=== PATIENT | male | born 1960 | race Caucasian/White ===

== ENCOUNTER → 2018-06-14 | Outpatient (CLI) | payer BC ==
[~2018-06-14] VITALS: Ht 188 cm; Wt 124.7 kg
[2018-06-14] VITALS (7 sets, daily range): BP systolic 138–162; BP diastolic 72–94
[~2018-06-14] MED LIST: AMARYL4 MG PO; AMBIEN 5 MG TABL5 M1 PO; ASPIRIN325 PO; ASPIRIN81 M2 PO; CARVEDILOL12.5 MG PO; LASIX 20 MG TAB20 MG PO; LIPITOR80 MG PO; LISINOPRIL5 MG PO; METFORMIN HCL500 MG PO; NITROGLYCERIN0.4 MG SUBLING; NORCO 5-325 TA1 EACH; PERCOCET PO; PLAVIX 75 MG TA75 M1 PO
[2018-06-14 08:17] LABS: HEMATOCRIT 47.7 % (42.0-52.0); HEMOGLOBIN 16.3 gm/dL (14.0-18.0); MCH 27.8 pg (26.0-34.0); MCHC 34.1 g/dL (28.0-37.0); MCV 81.6 fL (80.0-100.0); MPV 7.3 fl. (7.2-11.1); RBC 5.84 mil/uL (4.50-6.00); RDW-CV 14.7 % (10.5-14.5); WBC 10.1 thou/uL (4.0-11.0)
[2018-06-14 08:30] LABS: APTT 27.7 Seconds (25.0-31.3); INR 1.1
[2018-06-14 08:35] LABS: ALBUMIN 4.2 g/dL (3.4-5.0); ALKALINE PHOSPHATASE 68 U/L (46-116); ANION GAP 9 mmol/L (7-16); BUN 20 mg/dL (7-18); CALCIUM 8.8 mg/dL (8.5-10.1); CHLORIDE 100 mmol/L (98-107); CHOLESTEROL 103 mg/dL (<200); CO2 27 mmol/L (21-32); CREATININE 1.1 mg/dL (0.6-1.3); GLUCOSE 158 mg/dL (70-99); HDL CHOLESTEROL 27 mg/dL (>40); LDL CHOLESTEROL 34 mg/dL (<100); POTASSIUM 4.2 mmol/L (3.5-5.1); SERUM ASSESSMENT Clear; SGOT 22 U/L (15-37); SGPT 44 U/L (30-65); SODIUM 136 mmol/L (136-145); TC:HDL 3.8 Ratio (Not establshd); TOTAL BILIRUBIN 0.8 mg/dL (<0.1-1.0); TOTAL PROTEIN 7.9 g/dL (6.4-8.2); TRIGLYCERIDE 212 mg/dL (<150); VLDL 42 mg/dL (<40)
--- NOTE | 2018-06-14 10:26 | EKG ---
[place] [address] ELECTROCARDIOGRAM REPORT Name: VIVIAN MENDOZA Room: [facility]#: [id number] Admission: 06/14/18 Attend Phys: Josh Ortega MD Discharge: Date of : 56 Report #: [id number] THIS REPORT FOR: //name// [facility] Test Date: 2018-06-14 Test Time: 08:08:16 Pat Name: VIVIAN MENDOZA Department: Room: Gender: Hat Checker: : 1960 Requested By: Josh Ortega Order Number: [id number] Reading MD: Josh Ortega Measurements Intervals [place] Rate: 63 P: 39 IL: 247 QRS: 138 QRSD: 110 T: 122 QT: 413 QTc: 423 Interpretive Statements Sinus rhythm Atrial premature complexes Prolonged [place] interval Probable right ventricular hypertrophy Nonspecific T abnormalities, lateral leads No previous ECG available for comparison Electronically Signed On 06-14-2018 10:25:46 CDT by Josh Ortega [email or web address] <ELECTRONICALLY SIGNED> By: Josh Ortega MD, [facility] 06/14/18 [id number] [id number] Josh Ortega MD, [facility] /EPI
--- NOTE | 2018-06-27 12:43 | CARD ---
[address] [address] CARDIAC CATH REPORT Name: REJIVIVIAN J Room: [facility]#: [id number] Admission: 06/14/18 Attend Phys: Josh Ortega MD Discharge: Date of : 56 Report #: [id number] THIS REPORT FOR: //name// APPROVED REPORT Study performed: 06/14/2018 12:59:29 Patient Details Patient Status: Out-Patient Room #: The patient is a 58 year-old male Event Personnel Josh Ortega Ssis Ssrs Developer, Marlys Montelongo RN Research Programmer, Lety Boyle RTR Scrub, Kandace Leyva RTR Monitor Procedures Performed Left Heart Cath Coronaries, Bypass Grafts Procedure Narrative A 6fr Ultimum Sheath sheath was inserted into the right femoral artery. Coronary angiography was performed using coronary diagnostic catheters. The right coronary system was accessed and visualized with a Diagnostic 3DRC 6fr catheter. The left coronary system was accessed and visualized with a Diagnostic JL4 catheter. The left ventricle was accessed and visualized with a Diagnostic Angled Pigtail catheter. Left ventricular/Aortic Valve gradient assessed via catheter pullback. Closure device was deployed with a Fr Mynx 6Fr/7Fr. Intraoperative Conscious Sedation Sedation start time: 13:05 Case end Time: 13:49 Fentanyl 25 mcg Versed 2 mg Fluoro Time: 9.0 minutes Dose: DAP [id number] cGycm2 2410 mGy Contrast Type and Amount: Omnipaque 240 ml [place] Artery Percent Stenosis Grafts (Complete if Previous CABG=Yes: Percent Stenosis) escobar to lad patent, no sig disease free radial to lcx om no disease svg to rca,sluggish flow, but no signficant disease, 30% [place] [address] CARDIAC CATH REPORT Name: VIVIAN MENDOZA Room: [facility]#: [id number] Admission: 06/14/18 Attend Phys: Josh Ortega MD Discharge: Date of : 56 Report #: [id number] Diagnostic Cath Left Main 30% LAD mid body occ. Circumflex 50% OM1 80% Right Coronary occ. after 95% mid body Left Ventriculography The left ventricle is normal in size with abnormal contractility. The left ventricular ejection fraction is estimated to be 40-45%. Left ventricular wall motion abnormalities are present. There is no mitral insufficiency. severe basal inferior hypokinesis Hemodynamics The aortic pressure is 151/76 mmHg with a mean of 96 mmHg. The left ventricular pressure is 146/4 mmHg with a mean of mmHg. The left ventricular end diastolic pressure is 15 mmHg. Conclusion 1. severe [place] cad 2. Patent ESCOBAR to lad, without disease 3. Patent radial artery graft to Circ. /Om system,minimal disease 4. Patent SVT to RCA, no signicant diseae 5.Mild LV dysfunction, prior inferior [place] Recommendations Medical Therapy <ELECTRONICALLY SIGNED> By: Josh Ortega MD, FACC 06/27/18 [id number] Ortega MD, FAC /INF
== END | disposition home or self-care (01) ==
LOC: M.CL 07:35 → EDBD 09:00 → M.CL 09:00
PROVIDERS: Internal Medicine Cardiovascular Disease
DX: I25.10 Atherosclerotic heart disease of native coronary artery without angina pectoris (principal); I10 Essential (primary) hypertension; E78.5 Hyperlipidemia, unspecified; I42.9 Cardiomyopathy, unspecified; Z98.52 Vasectomy status; Z98.890 Other specified postprocedural states; Z95.1 Presence of aortocoronary bypass graft; Z79.82 Long term (current) use of aspirin; Z79.899 Other long term (current) drug therapy; Z79.891 Long term (current) use of opiate analgesic; Z79.01 Long term (current) use of anticoagulants